=== PATIENT | male | born 1980 | race African-American/Black ===

== ENCOUNTER 2019-08-06 14:06 | Emergency (ER) | payer SELFPAY | END 2019-08-06 17:28 | disposition home or self-care (01) | LOC: ERS 14:06 | DX: S39.012A Strain of muscle, fascia and tendon of lower back, initial encounter (principal); Z71.6 Tobacco abuse counseling; I10 Essential (primary) hypertension; F31.9 Bipolar disorder, unspecified; F17.210 Nicotine dependence, cigarettes, uncomplicated; X58.XXXA Exposure to other specified factors, initial encounter | CPT/HCPCS: 99406 ==